=== PATIENT | female | born 1980 | race Caucasian/White ===

== ENCOUNTER → 2022-06-18 08:56 | Outpatient (CLI) | payer OTHER, SELFPAY ==
--- NOTE | 2022-06-18 | DI.US.S_ITS ---
PROCEDURE: US PELVIC COMPLETE INDICATIONS: OVULATION BLEEDING TECHNIQUE: Real-time scanning was performed of the pelvic organs, with image documentation. Additional endovaginal scanning was necessary due to incomplete visualization of the adnexal and endometrial structures by transabdominal scanning. COMPARISON: None. FINDINGS: Uterus: The uterus is anteverted and measures 7.5 x 2.7 x 4.2 cm. Within the endometrium there is a 2.2 x 0.8 cm well-circumscribed oval-shaped echogenic focus which appears mobile from the endometrium on the cine clip suggesting a polyp within the endometrial cavity versus blood or endometrial tissue (patient is reportedly on the last day of menses). Overall the thickness of the endometrium is 9.2 mm Uterine echotexture is homogeneous. A fibroid is noted in the left anterior subserosal location measuring 1.4 x 1.2 x 1.1 cm. A nabothian cyst is seen on the cervix. Ovaries: The right ovary measures 2.5 x 1.5 x 2.9 cm, with a calculated ovarian volume of 5.5 cc. The left ovary measures 2.7 x 1.7 x 1.7 cm, with a calculated ovarian volume of 4.1 cc. The ovaries have a normal sonographic appearance. Less than 12 follicles can be seen in each ovary. No adnexal masses are seen. Other: No pathologic free abdominal or pelvic fluid. IMPRESSION: 1. 2.2 x 0.8 cm well-circumscribed oval-shaped echogenic focus in the endometrium which appears mobile in the endometrial canal as described above. This could be a polyp or blood in the endometrial cavity from menses, or a pedunculated fibroid. Recommend repeat ultrasound mid cycle in 6 weeks. 2. Normal ovaries with normal follicles. We strive to produce accurate, complete, and clear reports of imaging services. To assist us in improving patient care, this report was composed using standard report templates and voice recognition software. Therefore, it may contain abnormal punctuation, insertions and/or omissions. Occasional wrong-word or sound-alike substitutions may occur. Though we review the report and make efforts to correct it, we do recommend that the report be read carefully in proper context to recognize any text inaccuracies. Dictated by: Supa Grover M.D. on 06/18/2022 at 10:00 Approved by: Supa Grover M.D. on 06/18/2022 at 10:13
== END ==
PROVIDERS: Family Provider Family Medicine; PCP Family Medicine; Referring Provider Nurse Practitioner Family; Visit Provider Nurse Practitioner Family
DX: N92.3 Ovulation bleeding (principal)
CPT/HCPCS: 76830; 76856